=== PATIENT | female | born 1965 | race Caucasian/White ===

== ENCOUNTER 2021-05-28 12:26 | Emergency (ER) | payer SELFPAY ==
[~2021-05-28] VITALS: Ht 182.9 cm; Wt 65.9 kg
[2021-05-28 12:33] VITALS: BP 93/64; TEMP 96.9
[2021-05-28 13:49] VITALS: PULSE 93
[2021-05-28] MEDS ORDERED: NORCO 325 MG-51 TAB PO (13:57)
== END 2021-05-28 14:05 | disposition home or self-care (01) ==
LOC: COL.ER 12:26
DX: S42.291A Other displaced fracture of upper end of right humerus, initial encounter for closed fracture (principal); W10.9XXA Fall (on) (from) unspecified stairs and steps, initial encounter
CPT/HCPCS: J2270; J2405